=== PATIENT | male | born 1980 ===

== ENCOUNTER 2020-11-15 10:11 | Emergency (ER) | payer SELFPAY ==
[2020-11-15 10:49] VITALS: BP 129/83
[2020-11-15 11:13] LABS: Bilirubin,Urine NEG (Negative); Blood,Urine NEG (Negative); Color,Urine Yellow (Yellow); Mucus,Urine 1+ /HPF; Urobilinogen,Urine < 2.0 mg/dL (<2.0)
--- NOTE | 2020-11-15 12:36 | Emergency Department Report ---
ED Male HPI - General Chief complaint: Urogenital-Male Stated complaint: ACHES FATIGUE Time Seen by Provider: 11/15/20 12:05 Source: patient Mode of arrival: Ambulatory Limitations: No Limitations - History of Present Illness Initial comments: 40-year-old -Italian male presents to the emergency room reporting has urinary frequency x2 weeks and a blister on his penis that itches for 2 weeks. Patient denies any hematuria, no penile discharge. No fever no chills. Does not have a primary care provider. Not concerned for STD. Onset/Timin -: week(s) Location: penis Severity scale (0 -10): 0 Consistency: intermittent Improves with: none Worsens with: sexual intercourse denies: discharge, swelling, mass, rash, urinary retention, blood in urine, dysuria, fever, nausea/vomiting, incontinence, other - Related Data Sexually active: Yes (Unprotected 1 partner last 6 months) Allergies Allergy/AdvReac Type Severity Reaction Status Date / Time No Known Allergies Allergy Unverified 11/15/20 10:44 ED Review of Systems ROS: Stated complaint: ACHES FATIGUE Other details as noted in HPI ED Past Medical Hx - Past Medical History Previous Medical History?: No - Surgical History Past Surgical History?: No ED Physical Exam - General Limitations: No Limitations General appearance: alert, in no apparent distress - Head Head exam: Present: atraumatic, normocephalic - Eye Eye exam: Present: EOMI - ENT ENT exam: Present: normal external ear exam - Neck Neck exam: Present: full ROM - Respiratory Respiratory exam: Absent: accessory muscle use - Cardiovascular Cardiovascular Exam: Present: regular rate - GI/Abdominal GI/Abdominal exam: Absent: soft, distended, tenderness - Rectal Rectal exam: Present: deferred - exam: Present: circumcision. Absent: scrotal swelling External exam: Present: other (Not able to appreciate any blisters) - Extremities Exam Extremities exam: Present: normal inspection, full ROM - Back Exam Back exam: Present: normal inspection - Neurological Exam Neurological exam: Present: alert, oriented X3, normal gait - Psychiatric Psychiatric exam: Present: normal affect, normal mood - Skin Skin exam: Present: warm, dry, intact, normal color. Absent: rash ED Course Vital Signs 11/15/20 10:44 Temperature 98.2 F Pulse Rate 99 H Respiratory 16 Rate Blood Pressure 129/83 O2 Sat by Pulse 97 Oximetry ED Medical Decision Making - Medical Decision Making 40-year-old -Italian male presents to the emergency room reporting has urinary frequency x2 weeks and a blister on his penis that itches for 2 weeks. Patient denies any hematuria, no penile discharge. No fever no chills. Does not have a primary care provider. Not concerned for STD. Exam was chaperoned with Pete HENAO. I do not appreciate any lesions on penis. I recommend patient to follow-up at the health department or a primary care provider. Critical care attestation.: If time is entered above; I have spent that time in minutes in the direct care of this critically ill patient, excluding procedure time. ED Disposition Clinical Impression: Lesion of penis Disposition: DC- TO HOME OR SELFCARE Is pt being admited?: No Does the pt Need Aspirin: No Condition: Stable Additional Instructions: Recommend to follow-up with the health department for full STD up evaluation. Or you can follow-up at a primary care provider. I have listed the information below for your convenience. Referrals: DAO FORD MD [Staff Physician] - 3-5 Days [facility] Depart [Outside] - 3-5 Days Forms: Work/School Release Form(ED)
== END 2020-11-15 12:57 | disposition home or self-care (01) ==
LOC: ED 10:11
DX: N50.9 Disorder of male genital organs, unspecified (principal); Z79.899 Other long term (current) drug therapy
CPT/HCPCS: 81001; 82962; 99283